=== PATIENT | female | born 1945 | race Caucasian/White ===

== ENCOUNTER 2017-05-12 10:22 | Outpatient (CLI) | payer MEDICARE, OTHER ==
--- NOTE | 2017-05-12 11:37 | MMO ---
BILATERAL SCREENING MAMMOGRAM: HISTORY: Screening. History of left lumpectomy and radiation in 2004. COMPARISON: Mammograms from 2016, 2014, and 2013. FINDINGS: Bilateral screening CC and MLO mammograms are performed with computer aided detection. The breasts a re heterogeneously dense, which may obscure small masses. Benign calcifications in both breasts. Post surgical changes in the left breast. No suspicious mass, architectural distortion, or microcalcifications. IMPRESSION: BI-RADS 2: Benign findings. Continued annual mammographic screening recommended. POS: [facility]
== END 2017-05-12 10:23 | disposition home or self-care (01) ==
LOC: SCSMAMMO 10:22
PROVIDERS: ATTEND Internal Medicine
DX: Z12.31 Encounter for screening mammogram for malignant neoplasm of breast (principal)
CPT/HCPCS: 77067

== ENCOUNTER 2018-05-17 13:23 | Outpatient (CLI) | payer MEDICARE, OTHER ==
--- NOTE | 2018-05-17 14:55 | RAD ---
TWO VIEW CHEST: History: Cough. Comparison: 04-05-16 FINDINGS: The lungs appear clear with no infiltrate identified. The heart and mediastinum are unremarkable. Vas cular markings appear normal. Interstitial markings upper normal but stable from prior study. Mild de generative spine changes noted. IMPRESSION: No evidence of infiltrate. POS: [facility]
== END 2018-05-17 13:24 | disposition home or self-care (01) ==
LOC: BICMAMMO 13:23
PROVIDERS: ATTEND Internal Medicine
DX: Z12.31 Encounter for screening mammogram for malignant neoplasm of breast (principal); R05 Cough; R92.1 Mammographic calcification found on diagnostic imaging of breast; Z80.3 Family history of malignant neoplasm of breast; Z85.3 Personal history of malignant neoplasm of breast; Z98.890 Other specified postprocedural states
CPT/HCPCS: 71046; 77063; 77067

== ENCOUNTER 2019-05-18 10:51 | Outpatient (CLI) | payer MEDICARE, OTHER ==
--- NOTE | 2019-05-18 12:28 | BD ---
BONE DENSITOMETRY USING DEXA: HISTORY: Postmenopausal screening for osteoporosis. FINDINGS: Lumbar Spine: BMD (g/cm2) L1 0.824 T-Score: -1.5 Z-Score: 0.7 L2 0.879 T-Score: -1.4 Z-Score: 1.1 L3 0.872 T-Score: -1.9 Z-Score: 0.6 L4 0.965 T-Score: -0.9 Z-Score: 1.8 L1-L4 0.885 T-Score: -1.5 Z-Score: 1.0 Femoral Neck: 0.720 T-Score: -1.2 Z-Score: 1.0 Total Femur: 0.880 T-Score: -0.5 Z-Score: 1.3 The 10-year fracture risk for a major osteoporotic fracture is 30% and for a hip fracture is 6.5%. Impression: Osteopenia. POS: [facility]
--- NOTE | 2019-05-18 14:40 | MMO ---
Bilateral MAMMO Bilat Screen [facility]. CLINICAL HISTORY: Patient is 74 years old and is seen for screening. The patient has the following family history of breast cancer: mother, at age 95, malignant (generic). The patient has a history of malignant (generic) at age 63. The patient has a history of left Lumpectomy in 2003 - malignant. VIEWS: The views performed were: bilateral craniocaudal with tomosynthesis and bilateral mediolateral oblique with tomosynthesis. FILMS COMPARED: The present examination has been compared to prior imaging studies performed at [facility] on 05/01/2015, 05/05/2016 and 05/12/2017, and at [facility] on 05/17/2018. This study has been interpreted with the assistance of computer-aided detection. MAMMOGRAM FINDINGS: The breasts are heterogeneously dense, which could obscure a lesion on mammography. There is a stable post-surgical scar seen in the left breast. There are no suspicious masses, suspicious calcifications, or new areas of architectural distortion. IMPRESSION: THERE IS NO MAMMOGRAPHIC EVIDENCE OF MALIGNANCY. A ROUTINE FOLLOW-UP MAMMOGRAM IN 1 YEAR IS RECOMMENDED. THE RESULTS OF THIS EXAM WERE SENT TO THE PATIENT. ACR BI-RADS Category 2 - Benign finding MAMMOGRAPHY NOTE: 1. A negative mammogram report should not delay a biopsy if a dominant of clinically suspicious mass is present. 2. Approximately 10% to 15% of breast cancers are not detected by mammography. 3. Adenosis and dense breasts may obscure an underlying neoplasm. Reported by: NORMAN CASTELLANOS MD Electonically Signed: [id number]
== END 2019-05-18 10:52 | disposition home or self-care (01) ==
LOC: BICMAMMO 10:51
PROVIDERS: ATTEND Internal Medicine
DX: Z12.31 Encounter for screening mammogram for malignant neoplasm of breast (principal); M81.0 Age-related osteoporosis without current pathological fracture; Z80.3 Family history of malignant neoplasm of breast; Z85.3 Personal history of malignant neoplasm of breast; M85.89 Other specified disorders of bone density and structure, multiple sites
CPT/HCPCS: 77063; 77067; 77080

== ENCOUNTER 2020-08-21 10:28 | Outpatient (CLI) | payer MEDICARE, OTHER | END 2020-08-21 10:29 | disposition home or self-care (01) | LOC: BICMAMMO 10:28 | PROVIDERS: ATTEND Internal Medicine | DX: Z12.31 Encounter for screening mammogram for malignant neoplasm of breast (principal); Z80.3 Family history of malignant neoplasm of breast; Z85.3 Personal history of malignant neoplasm of breast; Z98.890 Other specified postprocedural states | CPT/HCPCS: 77063; 77067 ==

== ENCOUNTER 2022-08-10 09:16 | Emergency (ER) | payer MEDICARE ==
[~2022-08-10 09:16] MED LIST: Iopamidol-370 76% 500 ML MDV (1 ML CHARGE) ONE
[2022-08-10 10:19] LABS: #Eosinphils 0.1 thou/uL (0.0-0.7); #Lymphocytes 1.6 thou/uL (1.20-3.40); #Monocytes 0.5 thou/uL (0.11-0.59); %Basophils 0.4 % (0.0-1.0); %Lymphocytes 19.2 % (21.0-51.0); %Monocytes 5.6 % (0.0-10.0); %Neutrophils 73.8 % (42.0-75.0); Hemoglobin 14.3 g/dL (12.0-16.0); Mean Corpuscular HGB CONC 33.3 g/dL (32.0-36.0); Mean Corpuscular Hemoglobin 30.3 pg (27.0-31.0); Mean Platelet Volume 8.3 fL (7.4-10.4); Platelet Count 225 10x3/uL (130-400); RBC Distribution Width 12.6 % (11.5-14.5); Red Blood Cell (RBC) Count 4.73 mill/uL (4.20-5.40); White Blood Cell (WBC) Count 8.1 10x3/uL (4.8-10.8)
[2022-08-10 10:55] LABS: ALT (SGPT) 21 U/L (8-55); AST (SGOT) 20 U/L (5-34); Albumin 4.1 g/dL (3.4-4.8); Alkaline Phosphatase 73 U/L (40-110); Anion Gap 13 mmol/L (10-20); BUN (Urea Nitrogen) 13 mg/dL (9.8-20.1); Bilirubin, Total 0.9 mg/dL (0.2-1.2); Calc. Creatinine Clearance 0 mL/min (70-130); Calcium 9.3 mg/dL (7.8-10.44); Carbon Dioxide 26 mmol/L (23-31); Chloride 103 mmol/L (98-107); Estimated GFR 76; Globulin 3.2 g/dL (2.4-3.5); Glucose 124 mg/dL (83-110); Lipase Less than 4 U/L (8-78); Magnesium 1.9 mg/dL (1.6-2.6); Potassium 3.7 mmol/L (3.5-5.1); Protein, Total 7.3 g/dL (5.8-8.1); Sodium 138 mmol/L (136-145)
[2022-08-10 12:14] LABS: Bilirubin Negative (Negative); Blood, Urine Negative (Negative); Clarity Clear (Clear); Glucose, Urine (Dipstick) Normal (Negative); Ketone, Urine 20 mg/dL (Negative); Leukocyte Negative Leu/uL (Negative); Nitrite Negative (Negative); Protein, Urine (Dipstick) 20 mg/dL (Neg-Trace); Specific Gravity, Urine 1.029 (1.002-1.036); pH, Urine 6.5 (5.0-9.0)
== END 2022-08-10 12:42 | disposition home or self-care (01) ==
LOC: ERS 09:16
DX: S22.080A Wedge compression fracture of T11-T12 vertebra, initial encounter for closed fracture (principal); K59.00 Constipation, unspecified; N28.89 Other specified disorders of kidney and ureter; I10 Essential (primary) hypertension; W18.30XA Fall on same level, unspecified, initial encounter
CPT/HCPCS: 36415; 74177; 80053; 81003; 83690; 83735; 85025; Q9967

== ENCOUNTER 2022-09-15 09:27 | Outpatient (CLI) | payer MEDICARE | END 2022-09-15 09:28 | disposition home or self-care (01) | LOC: BICMAMMO 09:27 | PROVIDERS: ATTEND Internal Medicine | DX: Z12.31 Encounter for screening mammogram for malignant neoplasm of breast (principal) | CPT/HCPCS: 77063; 77067 ==

== ENCOUNTER 2023-01-04 08:37 | Outpatient (CLI) | payer MEDICARE ==
[2023-01-04] MEDS ORDERED: Magnevist 469MG/ML 20 ML VIAL ONE (09:14)
== END 2023-01-04 08:38 | disposition home or self-care (01) ==
LOC: BICMRI 08:37
PROVIDERS: ATTEND Internal Medicine
DX: N28.89 Other specified disorders of kidney and ureter (principal); N28.1 Cyst of kidney, acquired; N85.8 Other specified noninflammatory disorders of uterus
CPT/HCPCS: 74183; 82565; A9579

== ENCOUNTER 2023-09-17 09:32 | Outpatient (CLI) | payer MEDICARE | END 2023-09-17 09:33 | disposition home or self-care (01) | LOC: BICMAMMO 09:32 | PROVIDERS: ATTEND Internal Medicine | DX: Z12.31 Encounter for screening mammogram for malignant neoplasm of breast (principal); Z80.3 Family history of malignant neoplasm of breast; Z85.3 Personal history of malignant neoplasm of breast; Z98.890 Other specified postprocedural states | CPT/HCPCS: 77063; 77067 ==